=== PATIENT | male | born 1980 | race Caucasian/White ===

== ENCOUNTER → 2019-09-23 | Outpatient (CLI) | payer BC ==
--- NOTE | 2019-09-27 16:23 | SLEEPHOME ---
DATE OF PROCEDURE: 09/23/2019 ORDERED BY: Yuni Avila NP Diagnostic home sleep testing was performed due to concern for the obstructive sleep apnea syndrome. For testing a nocturnal T3 respiratory monitoring device was used. Continuous record was made of pulse, oxygen saturation, airflow, chest and abdominal strain and body position. 9 hours and 59 minutes of data were reviewed. There were 8 hours and 51 minutes marked as time in bed. During the interval marked time in bed, there were 785 respiratory events identified of 10 seconds in duration or greater for a respiratory event index of 88.6. The events were primarily obstructive; 39 mixed and central apneas were seen. Baseline pulse rate 72 beats per minute. Pulse rate ranged 48-114. Baseline saturation 90%. Saturations fell as low as 63%. Testing was performed in both the supine and nonsupine positions. IMPRESSION: Abnormal home sleep testing with repetitive respiratory events and oxygen desaturations to 63% with a respiratory event index of 88.6 is consistent with the obstructive sleep apnea syndrome. RECOMMENDATIONS: The patient should be encouraged to undergo formal sleep evaluation.
== END ==
LOC: M SLEEP HO 10:49
PROVIDERS: ATTEND Nurse Practitioner Adult Health
DX: G47.30 Sleep apnea, unspecified (principal)

== ENCOUNTER → 2019-10-22 | Outpatient (CLI) | payer BC ==
--- NOTE | 2019-10-28 09:06 | SLEEPCENT ---
DATE OF PROCEDURE: 10/22/2019 ORDERED BY: Yuni Avila Nocturnal polysomnography was performed for the titration of pressure therapy in this patient with a clinical diagnosis of obstructive sleep apnea syndrome supported by home testing revealing a respiratory event index of 88.6 with saturations to 63%. For testing, the patient was fit with a iXpert full face Simplus mask of medium size, 4 cm of water pressure were applied to the circuit and the lights were extinguished. 7 hours and 33 minutes of data were reviewed. There were 635 minutes of sleep identified. Sleep latency was prolonged at 32.5 minutes. Rapid eye movement (REM) latency was normal at 81.5 minute. Sleep architecture was good with 3 REM cycles. Overall sleep efficiency was 83.4%. The patient's electrocardiogram showed a sinus rhythm with an average heart rate of 74 beats per minute. Electroencephalogram (EEG) showed normal waveforms for awake and sleep. Respiratory events were fully palliated with a C-PAP at a pressure +11. Remaining measures of sleep physiology were reasonably normal. IMPRESSION: Obstructive sleep apnea syndrome (G47.33). RECOMMENDATION: Nightly use of pressure therapy at 11 cm of water. MTDD
== END ==
LOC: M SLEEP 20:00
PROVIDERS: ATTEND Nurse Practitioner Adult Health
DX: G47.33 Obstructive sleep apnea (adult) (pediatric) (principal)

== ENCOUNTER → 2020-05-04 | Outpatient (CLI) | payer BC | LOC: M LABSMTC 12:38 | PROVIDERS: ATTEND Pediatrics | DX: Z20.828 Contact with and (suspected) exposure to other viral communicable diseases (principal) ==